=== PATIENT | female | born 1945 | race Caucasian/White ===

== ENCOUNTER 2021-02-14 01:55 | Emergency (ER) | payer MEDICARE ==
[~2021-02-14] VITALS: Ht 152.4 cm; Wt 75.3 kg
[2021-02-14] MEDS ORDERED: CLONIDINE HCL 0.2 MG TAB PO ONE (02:15)
[2021-02-14] MEDS ORDERED: HYDRALAZINE HCL 25 MG TAB ONE (03:31)
[2021-02-14] MEDS ORDERED: HYDRALAZINE HCL 25 MG TAB PO ONE (03:45)
[2021-02-14 04:39] VITALS: BP 181/47
== END 2021-02-14 04:20 | disposition home or self-care (01) ==
LOC: ER 02:11
DX: I16.0 Hypertensive urgency (principal); I10 Essential (primary) hypertension; E78.5 Hyperlipidemia, unspecified; E03.9 Hypothyroidism, unspecified
CPT/HCPCS: 99283

== ENCOUNTER 2021-03-17 09:35 | Day surgery (SDC) | payer MEDICARE ==
[2021-03-12 10:23] LABS: BASOPHILS # (AUTO) 0.1 (0.0-0.1); BASOPHILS % 0.7 % (0.0-1.0); EOSINOPHILS # (AUTO) 0.3 (0.0-0.4); EOSINOPHILS % 4.1 % (0.0-6.0); HEMATOCRIT 43.5 % (34.2-44.1); LYMPHOCYTES # (AUTO) 1.4 (1.0-3.2); LYMPHOCYTES % 18.8 % (18.0-39.1); MEAN CORPUSCULAR HEMOGLOBIN 31.9 pg (28-32); MEAN CORPUSCULAR HGB CONC 32.2 g/dL (31-35); MEAN CORPUSCULAR VOLUME 99.1 fL (81-99); MONOCYTES # (AUTO) 1.5 (0.2-0.8); MONOCYTES % 20.5 % (4.4-11.3); NEUTROPHILS % 55.3 % (38.7-80.0); PLATELET COUNT 209 x10e3/uL (140-360); RED BLOOD COUNT 4.39 x10e6/uL (3.6-5.1); RED CELL DISTRIBUTION WIDTH 13.2 % (11.7-14.4)
[2021-03-12 10:42] LABS: ALBUMIN 3.3 g/dL (3.5-5.0); ALBUMIN/GLOBULIN RATIO 0.9 (0.8-2.0); ANION GAP 11.7 mmol/L (8-16); CALCIUM 9.4 mg/dL (8.4-10.2); CREATININE, SERUM 0.95 mg/dL (0.57-1.11); POTASSIUM 4.7 mmol/L (3.5-5.1)
[~2021-03-17] VITALS: Ht 152.4 cm; Wt 75.3 kg
[2021-03-17] VITALS (9 sets, daily range): BP systolic 112–156; BP diastolic 43–80
[2021-03-17] MEDS ORDERED: CARTIA XT300 MG PO (09:38)
[2021-03-17] MEDS ORDERED: CLONIDINE HCL0.1 MG PO (09:38)
[2021-03-17] MEDS ORDERED: ZETIA10 MG PO (09:39)
[2021-03-17] MEDS ORDERED: FLECTOR1 EACH PO (09:39)
[2021-03-17] MEDS ORDERED: LEVOTHYROXINE112 MC1 PEG (09:40)
[2021-03-17] MEDS ORDERED: NEURONTIN100 MG PO (09:40)
[2021-03-17] MEDS ORDERED: FOLIC ACID0.8 MG PO (09:40)
[2021-03-17] MEDS ORDERED: METOPROLOL TAR100 MG PO (09:41)
[2021-03-17] MEDS ORDERED: EVISTA60 MG PO (09:42)
[2021-03-17] MEDS ORDERED: OMEPRAZOLE40 MG PO (09:42)
[2021-03-17] MEDS ORDERED: MICARDIS80 MG PO (09:43)
[2021-03-17] MEDS ORDERED: MICARDIS HCT 81 EAC1 PO (09:43)
[2021-03-17] MEDS ORDERED: VITAMIN C1000 MG PO (09:43)
[2021-03-17] MEDS ORDERED: AMLODIPINE BESYL5 MG PO (09:44)
[2021-03-17] MEDS ORDERED: POTASSIUM CHLO10 ME1 PO (09:45)
[2021-03-17] MEDS ORDERED: HEPARIN SOD (PORCINE) 1000 UNIT/ML 30ML ONE (09:59)
[2021-03-17] MEDS ORDERED: MIDAZOLAM HCL 2 MG/2 ML VIAL ONE (09:59)
[2021-03-17] MEDS ORDERED: NITROGLYCERIN/D5W 200 MCG/ML 250 ML ONE (10:00)
[2021-03-17] MEDS ORDERED: IOPAMIDOL 300MG/ML 100 ML INFUS..BTL IV ONE (10:00)
[2021-03-17] MEDS ORDERED: HEPARIN SOD/SOD CHLORIDE 2,000 ML ONE (10:00)
[2021-03-17] MEDS ORDERED: FENTANYL CITRATE/PF 100MCG/2 ML INJ ONE (10:00)
[2021-03-17] MEDS ORDERED: SODIUM CHLORIDE 0.9% 1000ML 1,000 ML ONE ×2 (10:00→13:05)
[2021-03-17] MEDS ORDERED: LIDOCAINE HCL 2% LOCAL 20 ML VIAL ONE (10:00)
[2021-03-17] MEDS ORDERED: CLOPIDOGREL BISULFATE 75 MG TAB ONE (10:02)
[2021-03-17] MEDS ORDERED: ASPIRIN 325 MG TAB ONE (10:02)
[2021-03-17] MEDS ORDERED: ATROPINE SULFATE 0.1 MG/ML 10ML SYR ONE (10:54)
[2021-04-07 10:03] LABS: BASOPHILS % 0.5 % (0.0-1.0); EOSINOPHILS # (AUTO) 0.3 (0.0-0.4); HEMOGLOBIN 14.5 g/dL (12.0-16.0); LYMPHOCYTES # (AUTO) 1.1 (1.0-3.2); LYMPHOCYTES % 18.2 % (18.0-39.1); MEAN CORPUSCULAR HEMOGLOBIN 31.8 pg (28-32); MEAN CORPUSCULAR HGB CONC 33.7 g/dL (31-35); MEAN CORPUSCULAR VOLUME 94.3 fL (81-99); MONOCYTES # (AUTO) 1.1 (0.2-0.8); MONOCYTES % 18.5 % (4.4-11.3); NEUTROPHILS # (AUTO) 3.5 (2.1-6.9); NEUTROPHILS % 57.5 % (38.7-80.0); PLATELET COUNT 221 x10e3/uL (140-360); RED BLOOD COUNT 4.56 x10e6/uL (3.6-5.1); RED CELL DISTRIBUTION WIDTH 12.3 % (11.7-14.4)
[2021-04-07 10:28] LABS: ALBUMIN 3.2 g/dL (3.5-5.0); ALBUMIN/GLOBULIN RATIO 0.8 (0.8-2.0); ANION GAP 10.7 mmol/L (8-16); CALCIUM 9.4 mg/dL (8.4-10.2); CREATININE, SERUM 1.07 mg/dL (0.57-1.11); POTASSIUM 4.7 mmol/L (3.5-5.1)
[2021-04-07 10:33] LABS: INR 1.09; PROTHROMBIN TIME 15.1 seconds (11.9-14.5)
[2021-04-07 10:35] LABS: PARTIAL THROMBOPLASTIN TIME 41.7 seconds (23.8-35.5)
== END 2021-03-17 14:50 | disposition home or self-care (01) ==
LOC: CATH LAB 09:35
PROVIDERS: ATTEND Internal Medicine Cardiovascular Disease
DX: I70.213 Atherosclerosis of native arteries of extremities with intermittent claudication, bilateral legs (principal); I65.23 Occlusion and stenosis of bilateral carotid arteries; I10 Essential (primary) hypertension; E78.5 Hyperlipidemia, unspecified; R01.1 Cardiac murmur, unspecified; R06.02 Shortness of breath; E03.9 Hypothyroidism, unspecified; M81.0 Age-related osteoporosis without current pathological fracture; Z88.1 Allergy status to other antibiotic agents; Z88.0 Allergy status to penicillin; Z01.812 Encounter for preprocedural laboratory examination; Z20.822 Contact with and (suspected) exposure to COVID-19; Z79.899 Other long term (current) drug therapy; Z68.32 Body mass index [BMI] 32.0-32.9, adult; Z87.891 Personal history of nicotine dependence
CPT/HCPCS: 36140; 36415 ×2; 75625; 75716; 80053 ×2; 80061; 85025 ×2; 85610; 85730; C1769 ×2; C1894; J2001; J2250; J3010; J7030; Q9967; U0002 ×2; 36247; 99152; J1644